=== PATIENT | male | born 1965 | race Caucasian/White ===

== ENCOUNTER → 2017-11-17 14:56 | Outpatient (CLI) | payer OTHER, BC, SELFPAY ==
--- NOTE | 2017-11-17 15:00 | XR_ITS ---
XR hip LT 2-3V w/pelvis HISTORY: ITS.REASON: Left hip pain ORDERING PHYSICIAN: Basilio Cole MD PATIENT AGE: 52 years COMPARISON: 01/24/2014 FINDINGS: There are severe osteoarthritic changes of the left hip with loss of joint space and osteophyte formation. Osteophytes are prominent along the inferior aspect of the hip joint. Diffuse subcortical cystic changes are present involving the acetabulum and the femoral head is some minimal flattening of the femoral head laterally. Degenerative changes are present in the lower lumbar spine. 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 These findings have progressed since previous exam
== END ==
PROVIDERS: PCP Family Medicine; Visit Provider Orthopaedic Surgery
DX: M16.12 Unilateral primary osteoarthritis, left hip (principal)
CPT/HCPCS: 73502

== ENCOUNTER 2018-11-30 15:00 | Outpatient (RCR) | payer BC, SELFPAY | END 2018-11-30 15:05 | disposition home or self-care (01) | LOC: PT 15:00 | PROVIDERS: Referring Provider Orthopaedic Surgery; Visit Provider Orthopaedic Surgery | DX: M16.12 Unilateral primary osteoarthritis, left hip (principal) | CPT/HCPCS: 97010; 97110; 97112; 97116; 97163 ==

== ENCOUNTER → 2019-01-25 15:06 | Outpatient (CLI) | payer BC, SELFPAY ==
[2019-01-25 15:09] LABS: Adenovirus F 40/41, stool Not Detected (NotDetected); Astrovirus Not Detected (NotDetected); Campylobacter Not Detected (NotDetected); Clostridium Difficile A/B, PCR Not Detected (NotDetected); Cryptosporidium Not Detected (NotDetected); Cyclospora Cayetanesis Not Detected (NotDetected); Entamoeba histolytica Not Detected (NotDetected); Enteropathogenic E coli Not Detected (NotDetected); Enterotoxigenic E coli Not Detected (NotDetected); Giardia lamblia Not Detected (NotDetected); Norovirus Not Detected (NotDetected); Plesimonas Shigalloides, PCR Not Detected (NotDetected); Salmonella, PCR Not Detected (NotDetected); Sapovirus Not Detected (NotDetected); Shiga-like toxin E coli Not Detected (NotDetected); Shigella Enterovasive E coli Not Detected (NotDetected); Vibrio Cholerae Not Detected (NotDetected); Vibrio, PCR Not Detected (NotDetected); Yersinia Entercolitica, PCR Not Detected (NotDetected)
[2019-01-25 18:22] LABS: Rotavirus A Detected (NotDetected)
[2019-01-25 18:30] LABS: Enteroaggregative E coli Detected (NotDetected)
== END ==
PROVIDERS: Visit Provider Family Medicine
DX: R19.7 Diarrhea, unspecified (principal); A08.0 Rotaviral enteritis; A04.4 Other intestinal Escherichia coli infections
CPT/HCPCS: 87507

== ENCOUNTER → 2021-09-18 15:37 | Outpatient (CLI) | payer BC, SELFPAY ==
[2021-09-18 15:58] LABS: Basophils # 0.1 K/mm3 (0-0.2); Basophils % 1.5 % (0.1-2.0); Eosinophils # 0.3 K/mm3 (0.0-0.4); Eosinophils % 3.2 % (0.1-12.0); Hematocrit 50.6 % (42.0-52.0); Hemoglobin 16.6 g/dL (14.1-18.0); Lymphocytes # 2.5 K/mm3 (0.7-4.5); Lymphocytes % 29.1 % (10-50); Mean Corpuscular HGB Conc 32.7 g/dL (31.8-35.4); Mean Corpuscular Hemoglobin 29.7 pg (27.0-31.2); Mean Corpuscular Volume 90.9 fl (80-94); Mean Platelet Volume 9.5 fl (7.4-10.4); Monocytes # 0.7 K/mm3 (0.1-1.0); Monocytes % 7.5 % (1.7-9.3); Neutrophils # 5.1 K/mm3 (1.8-7.8); Neutrophils % 58.7 % (37.0-80.0); Platelet Count 280 K/mm3 (142-424); Red Blood Count 5.57 M/mm3 (4.60-6.20); Red Cell Distribution Width 13.3 % (11.5-17.5); White Blood Count 8.6 K/mm3 (4.8-10.8)
[2021-09-18 16:06] LABS: Alanine Aminotransferase 42 U/L (12-78); Albumin Level 4.3 g/dl (3.5-5.0); Albumin/Globulin Ratio 1.4 (1.1-1.8); Alkaline Phosphatase 96 U/L (38-126); Anion Gap 14.2 mEq/L (5-15); Aspartate Amino Transferase 45 U/L (17-59); Bilirubin,Total 1.8 mg/dl (0.2-1.3); Blood Urea Nitrogen 16 mg/dl (9-20); Calcium 9.4 mg/dl (8.4-10.2); Carbon Dioxide 24 mmol/L (22.0-30.0); Chloride 104 mmol/L (98-107); Chol/HDL Ratio 3.5 (1-3.5); Cholesterol 128 mg/dl (140-200); Estimated Glomerular Filt Rate 78 ml/min (>60); GFR (African American) 94 ML/MIN (>60); Glucose 128 mg/dl (74-100); HDL Cholesterol 37 mg/dl (40-60); Potassium 4.2 mmoL/L (3.5-5.1); Sodium 138 mmol/L (136-145); Total Protein,Serum 7.3 g/dl (6.3-8.2); Triglycerides 111 mg/dl (30-150); VLDL Cholesterol 22 mg/dL (0-40)
[2021-09-18 16:17] LABS: Direct LDL Cholesterol 75.84 mg/dL (100-129)
[2021-09-18 16:22] LABS: 25-OH Vitamin D, Total 31.6 ng/mL (30-100)
[2021-09-18 16:23] LABS: Free T4 (Free Thyroxine) 1.05 ng/dl (0.78-2.19)
[2021-09-18 16:36] LABS: Prostate Specific Ag Screen 0.4 ng/ml (0.0-4.0); Thyroid Stimulating Hormone 1.29 uIU/mL (0.465-4.68)
[2021-09-19 11:29] LABS: Hemoglobin A1C 5.9 % (4.0-6.0)
== END ==
PROVIDERS: Visit Provider Emergency Medicine
DX: R53.83 Other fatigue (principal); E55.9 Vitamin D deficiency, unspecified; R73.09 Other abnormal glucose
CPT/HCPCS: 80053; 80061; 82306; 83036; 84402; 84439; 84443; 85025; G0103

== ENCOUNTER → 2021-12-13 10:28 | Outpatient (CLI) | payer BC, SELFPAY ==
--- NOTE | 2021-12-13 10:37 | XR_ITS ---
FINAL REPORT CLINICAL HISTORY: right hip pain,,no trauma FINDINGS: RIGHT HIP Four views were obtained. There is no acute fracture or dislocation. There is advanced hip joint space narrowing, subchondral sclerosis and degenerative cyst formation. There is flattening and indentation of the superior femoral head. No soft tissue abnormality is identified. IMPRESSION: Advanced changes of osteoarthritis with partial collapse of the femoral head. Reviewed, Interpreted and Dictated by Ramírez Herring MD Transcribed by Cecily Orellana Authenticated by Ramírez Herring MD on 12/13/2021 11:58:49 AM [facility]
== END ==
PROVIDERS: PCP Emergency Medicine; Visit Provider Emergency Medicine
DX: M25.551 Pain in right hip (principal)
CPT/HCPCS: 73502

== ENCOUNTER 2022-07-07 17:00 | Outpatient (RCR) | payer BC, SELFPAY | END 2022-07-07 17:05 | disposition home or self-care (01) | LOC: PT 17:00 | PROVIDERS: PCP Emergency Medicine; Visit Provider Orthopaedic Surgery | DX: M25.551 Pain in right hip (principal); Z96.641 Presence of right artificial hip joint | CPT/HCPCS: 97110; 97112; 97116; 97163; 97530 ==